=== PATIENT | male | born 1960 | race Asian ===

== ENCOUNTER 2018-05-21 13:50 | Day surgery (SDC) | END 2018-05-21 16:56 | disposition home or self-care (01) ==

== ENCOUNTER 2018-07-06 08:08 | Day surgery (SDC) | END 2018-07-06 14:30 | disposition home or self-care (01) ==

== ENCOUNTER 2018-12-02 07:57 | Day surgery (SDC) | payer BC ==
[~2018-12-02] VITALS: Ht 170.2 cm; Wt 75.9 kg
[~2018-12-02 07:57] MED LIST: ATOR-2 PO; CARV12.598 PO; CLOP75TA27 PO; ISOS30TA67 PO; LOSARTAN; METFORMIN; OMEG-80 PO
[2018-12-02 08:35] VITALS: Ht 170.2 cm; Wt 75.9 kg
[2018-12-02] MEDS ORDERED: ASA81 (08:40)
[2018-12-02] MEDS ORDERED: LISINOPRIL (08:40)
[2018-12-02] MEDS ORDERED: PLAVIX (08:40)
--- NOTE | 2018-12-02 09:23 | PREAC ---
Date/Time of Note Date/Time of Note DATE: 12/02/18 TIME: :22 Anesthesia Eval and Record Evaluation Time Pre-Procedure Interview DATE: 12/02/18 TIME: 09:22 Age 58 Sex male NPO: 8 hrs Preoperative diagnosis DUODENAL CARCINOID Planned procedure EGD Past Medical History Past Medical History: Includes Cardio: HTN, Dyslipidemia Endo: Diabetes Surgery & Anesthesia Issues No known issue Meds Anticoagulation: No Beta Senait within 24 hr: Yes Reason Beta Senait not given: Pt. not on B-Senait Reported Medications [Plavix] No Conflict Check 12/02/18 [Asa81] No Conflict Check 12/02/18 [Lisinopril] No Conflict Check 12/02/18 [Metformin] No Conflict Check 07/06/18 Atorvastatin* (Atorvastatin*) 80 Mg Tablet, 80 MG PO QHS, #30 TAB 05/21/18 Carvedilol* (Coreg*) 12.5 Mg Tablet, 12.5 MG PO BID, #60 TAB 05/21/18 [place]-3S/Dha/Epa/Fish Oil/D3 (FISH OIL + D3 SOFTGEL) 1 Each Capsule, 1 EACH PO, CAP 05/21/18 Discontinued Reported Medications [Losartan] No Conflict Check 07/06/18 Clopidogrel Bisulfate (Clopidogrel) 75 Mg Tablet, 75 MG PO DAILY, #30 TAB 05/21/18 Isosorbide Mononitrate* (Isosorbide Mononitrate*) 30 Mg Tab.er.24h, 30 MG PO DAILY, TAB 05/21/18 Meds reviewed: Yes Allergies Coded Allergies: Sulfa (Sulfonamide Antibiotics) (Verified Allergy, Severe, RASH/HIVES, 12/02/18) Allergies Reviewed: Yes Labs/Studies Labs Reviewed: Reviewed by anesthesiologist test: N/A Pre-procedure Exam Airway: Adequate mouth opening, Adequate thyromental dist Mallampati: Mallampati II Teeth: Normal Lung: Normal Heart: Normal ASA Physical Status ASA physical status: 3 Emergency: None Planned Anesthetic General/MAC: MAC Planned Pain Management Parenteral pain med Pre-operative Attestations Prior to commencing anesthesia and surgery, the patient was re-evaluated, there was verification of: *The patient's identity *The results of appropriate recent lab work and preoperative vital signs *The above evaluation not changing prior to induction *Anesthetic plan, risk benefits, alternative and complications discussed with patient/family; questions answered; patient/family understands, accepts and wishes to proceed. CHRISTIANO CUEVA December 02, 2018 09:23
[2018-12-02] MEDS ORDERED: ONDANSETRON 4 MG INJ IV PRN (09:30)
[2018-12-02] MEDS ORDERED: FENTAnyl 50 MCG/ML VIAL IV PRN (09:30)
[2018-12-02] MEDS ORDERED: hydrALAzine 20 MG INJ IV PRN (09:30)
[2018-12-02] MEDS ORDERED: EPHEDrine 25 MG/5 ML SYG IV PRN (09:30)
[2018-12-02] MEDS ORDERED: LABETALOL HCL 20MG INJ IV PRN (09:30)
[2018-12-02] MEDS ORDERED: LIDOCAINE 2% (SDV) 5 ML INJ ONE (09:45)
[2018-12-02] MEDS ORDERED: PROPOFOL 40 ML ONE (09:45)
[2018-12-02 09:46] VITALS: BP 114/72; PULSE 77; RESP 22
[2018-12-02 10:35] VITALS: BP 116/72; PULSE 65; RESP 14
--- NOTE | 2018-12-02 10:35 | PAC ---
Date/Time of Note Date/Time of Note DATE: 12/02/18 TIME: 10:35 Post-Anesthesia Notes Post-Anesthesia Note Last documented vital signs TEMP 98.4 o2 SAT 98% P 78 Activity: WNL Respiratory function: WNL Cardiovascular function: WNL Mental status: Baseline Pain reasonably controlled: Yes Hydration appropriate: Yes Nausea/Vomiting absent: Yes CHRISTIANO CUEVA December 02, 2018 10:35
== END 2018-12-02 14:07 | disposition home or self-care (01) ==
LOC: GIL 07:57
PROVIDERS: ATTEND Internal Medicine Gastroenterology
DX: K29.70 Gastritis, unspecified, without bleeding (principal); K31.7 Polyp of stomach and duodenum; I10 Essential (primary) hypertension; E11.9 Type 2 diabetes mellitus without complications; Z79.02 Long term (current) use of antithrombotics/antiplatelets; Z79.84 Long term (current) use of oral hypoglycemic drugs
CPT/HCPCS: 43239; 88305; Z7610